=== PATIENT | female | born 1945 | race Two or more races ===

== ENCOUNTER 2025-04-01 18:57 | Emergency (ER) | payer OTHER, MEDICARE ==
[~2025-04-01] VITALS: Ht 152.4 cm; Wt 120.0 kg
--- NOTE | 2025-04-01 19:09 | ED.PDOC ---
Altered Mental Status HPI Comments This is a 79 year old female BIBA and accompanied by daughter presenting to the ED with chief complaint of ALOC. Patient's daughter reports that the patient has been increasingly lethargic today and had a noted fever of 104F at home. Daughter relays that the patient had recently finished a Keflex course for treat ment of a UTI 2 weeks ago. Daughter states patient has been too weak to get up and has been slightly altered, being unable to recall her birthday when she normally does. Patient denies any N/V/D, abdominal pain, dysuria, hematuria, flank pain, or chills. 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 Hx Family History Family History: Reviewed,noncontributory to illness, Family hx of lung davion Family History (Other): Lupus Social History Smoker: Non-Smoker Alcohol: Denies ETOH Use Drugs: Denies Drug Use Lives In: Home Constitutional: reports: fever, weakness; denies: chills, diaphoresis, fatigue, malaise, sweats, others EENTM: denies: blurred vision, double vision, ear bleeding, ear discharge, ear drainage, ear pain, ear ringing, eye pain, eye redness, hearing loss, mouth pain, mouth swelling, nasal discharge, nose bleeding, nose congestion, nose pain, photophobia, tearing, throat pain, throat swelling, voice changes, others Respiratory: denies: cough, hemoptysis, orthopnea, SOB at rest, shortness of breath, SOB with excertion, stridor, wheezing, others Cardiovascular: denies: chest pain, dizzy spells, diaphoresis, Dyspnea on exertion, edema, irregular heart beat, left arm pain, lightheadedness, palpitations, PND, syncope, others Gastrointestinal: denies: abdomen distended, abdominal pain, blood streaked bowels, constipated, diarrhea, dysphagia, difficulty swallowing, hematemesis, melena, nausea, poor appetite, poor fluid intake, rectal bleeding, rectal pain, vomiting, others Genitourinary: denies: abnormal vagina bleeding, burning, dyspareunia, dysuria, flank pain, frequency, hematuria, incontinence, pain, , vagina disc harge, urgency, others Neurological: denies: dizziness, fainting, headache, left sided numbness, left sided weakness, numbness, paresthesia, pre-existing deficit, right sided numbness, right sided weakness, seizure, speech problems, tingling, tremors, weakness, others Musculoskeletal: denies: back pain, gout, joint pain, joint swelling, muscle pain, muscle stiffness, neck pain, others Integumetry: denies: bruises, change in color, change in hair/nails, dryness, laceration, lesions, lumps, rash, wounds, others Allergic/Immunocompromised: denies: Difficulty Healing, Frequent Infections, Hives, Itching, others Hematologic/Lymphatic: denies: anemia, blood clots, easy bleeding, easy bruising, swollen glands, others Endocrine: denies: excessive hunger, excessive sweating, excessive thirst, excessive urination, flushing, intolerance to cold, intolerance to heat, unexplained weight gain, unexplained weight loss, others Psychiatric: denies: anxiety, bipolar disorder, depression, hopeless, panic disorder, schizophrenia, sleepless, suicidal, others Unable to Obtain due to: Altered Mental Status All Other Systems: Reviewed and Negative Physical Exam General Appearance: Moderate Distress, Obese HEENT: Normal ENT Inspection, Pharynx Normal, TMs Normal Neck: Full Range of Motion, Non-Tender, Normal, Normal Inspection Respiratory: Chest Non-Tender, Lungs Clear, No Accessory Muscle Use, Respiratory Distress Cardiovascular: No Edema, No JVD, No Murmur, No Gallop, Normal Peripheral Pulses, Regular Rate/Rhythm Breast Exam: Deferred Gastrointestinal: No Organomegaly, Non Tender, No Pulsatile Mass, Normal Bowel Sounds, Soft Genitalia: Deferred Pelvic: Deferred Rectal: Deferred Extremities: No calf tenderness, Normal capillary refill, No pedal edema Musculoskeletal : Apperance: Normal Neurologic: knowledge engineer II-XII nml as Tested, Motor Weakness, Normal Affect, Normal Mood, No Sensory Deficits Cerebellar Function: Normal Reflexes: Normal Skin: Dry, Normal Color, Warm Lymphatic: No Adenopathy Was a procedure done? Was a procedure done?: No Differential Diagnosis (ALOC) Differential Diagnosis: Hypoglycemia, Sepsis, Hypoxemia, Seizure X-Ray, Labs, Meds, VS Vital Signs Date Time Temp Pulse Resp B/P (MAP) Pulse Ox O2 Delivery O2 Flow Rate FiO2 04/01/25 20:56 99.2 04/01/25 20:48 92 Room Air* 0 21 04/01/25 20:32 99.2 97 25 111/62 (78) 97 99.2 04/01/25 20:03 101.7 04/01/25 19:30 101.7 109 22 141/79 (99) 92 101.7 04/01/25 19:05 106 04/01/25 19:00 102.6 114 20 128/71 95 102.6 Lab Test 04/01/25 20:18 04/01/25 19:25 Range/Units Troponin I High Sensitivity Pending 11 </=34 ng/L White Blood Count 10.3 4.4-10.8 10^3/uL Red Blood Count 4.34 4.0-5.20 10^6/uL Hemoglobin 12.6 12.2-16.2 g/dL Hematocrit 38.0 36.0-46.0 % Mean Corpuscular Volume 87.7 80.0-100.0 fL Mean Corpuscular Hemoglobin 29.1 28.0-32.0 pg Mean Corpuscular Hemoglobin Concent 33.2 32.0-36.0 g/dL Red Cell Distribution Width 13.8 11.8-14.3 % Platelet Count 293 140-450 10^3/uL Mean Platelet Volume 7.2 6.9-10.8 fL Neutrophils (%) (Auto) 79.7 37.0-80.0 % Lymphocytes (%) (Auto) 7.4 L 10.0-50.0 % Monocytes (%) (Auto) 12.0 0.0-12.0 % Eosinophils (%) (Auto) 0.6 0.0-7.0 % Basophils (%) (Auto) 0.3 0.0-2.0 % Neutrophils # (Auto) 8.2 1.6-8.6 10 ^3/uL Lymphocytes # (Auto) 0.8 0.4-5.4 10 ^3/uL Monocytes # (Auto) 1.2 0-1.3 10 ^3/uL Eosinophils # (Auto) 0.1 0-0.8 10 ^3/uL Basophils # (Auto) 0 0-0.2 10 ^3/uL Nucleated Red Blood Cells 0.0 % Sodium Level 134 L 136-145 mmol/L Potassium Level 4.1 3.5-5.1 mmol/L Chloride Level 99 98-107 mmol/L Carbon Dioxide Level 27 20-31 mmol/L Anion Gap 8 5-15 Blood Urea Nitrogen 11 9-23 mg/dL Creatinine 1.19 H 0.550-1.02 mg/dL Glomerular Filtration Rate Calc 47 >90 mL/min BUN/Creatinine Ratio 9.2 L 10.0-20.0 Serum Glucose 118 H 74-106 mg/dL Lactic Acid Level 1.0 0.4-2.0 mmol/L Calcium Level 8.4 L 8.7-10.4 mg/dL Current Medications Medications (Trade) Dose Ordered Sig/Asad Route Start Time Stop Time Status Last Admin Sodium Chloride 1,000 ml @ 150 mls/hr Q6H40M ONCE IV 04/01/25 19:15 04/02/25 01:54 04/01/25 19:29 Vancomycin HCl 250 ml @ 250 mls/hr ONCE ONCE IV 04/01/25 19:15 04/01/25 20:14 DC 04/01/25 20:19 Ceftriaxone Sodium 50 ml @ 100 mls/hr ONCE ONCE IV 04/01/25 19:15 04/01/25 19:44 DC 04/01/25 19:30 Ibuprofen (Motrin Tablet) 400 mg ONCE ONCE PO 04/01/25 19:45 04/01/25 19:48 DC 04/01/25 20:03 IV Hep-Lock was established. The patient was given normal saline as a bolus sepsis protocol The patient was given vancomycin and Rocephin after blood cultures were drawn The patient was given ibuprofen 400 mg p.o. for the headache The chemistry panel and the CBC are within normal limits. The white blood cell count is also within normal limits At this time the chest x-ray shows possible infiltrates but no sign of any pneumothorax or other abnormalities At this time, the patient will be admitted The patient's family is now stating that the patient may leave. The urine test is pending The patient is being admitted per recommendation Images Reviewed?: Images reviewed and evaluated by me Time of 1ST Reevaluation: 21:01 Reevaluation 1ST: Unchanged Patient Education/Counseling: Diagnosis, Treatment, Prognosis Family Education/Counseling: No Family Present SEPSIS Sepsis Screen Physician Orders Urinalysis (04/01/25 19:02) Chest Portable (04/01/25 19:02) Market Analyst (04/01/25 19:02) Pulse Oximetry (04/01/25 19:02) Blood Pressure (04/01/25 19:02) Heplock Iv (04/01/25 19:02) Blood Culture (04/01/25 19:02) Electrocardigram (04/01/25 19:02) Sodium Chloride 0.9% (04/01/25 19:15) Troponin-I Hs (04/01/25 20:02) Troponin-I Hs (04/01/25 22:02) Electrocardigram (04/01/25 20:02) Electrocardigram (04/01/25 22:02) Vancomycin Per Pharmacy (04/01/25 20:45) Ceftriaxone 1gm/50ml (Rocephin) (04/02/25 20:00) Allergies (04/01/25 20:34) Code Status (04/01/25:34) Sodium Chloride 0.9% (04/01/25 20:45) Oxygen Per Hour (04/01/25 20:34) Hydrocodone-Acet 5/325mg Tab (Howell 5/32 (04/01/25 20:45) Ondansetron Hcl (Zofran) (04/01/25 20:45) Docusate Sodium Capsule (Colace Capsule) (04/01/25 20:45) Fall Risk Precautions In Place QSHIFT (04/01/25 20:34) Complete Blood Count (04/02/25 04:00) Comprehensive Metabolic Panel (04/02/25 04:00) Cardiac Diet-2gna,Lofat,Lochol (04/02/25 Breakfast) Condition: Serious (04/01/25 20:34) Acetaminophen Tablet (Tylenol Tablet) (04/01/25 20:45) Maintain Bed Rest (04/01/25 20:34) Sequential Compression Device (04/01/25 ) Albuterol Medneb (Ventolin Medneb) (04/01/25 20:45) Ipratropium Medneb (Atrovent Medneb) (04/01/25 20:45) Vancomycin 1gm/250ml Kit (04/01/25 21:30) Vital Signs Date Time Temp Pulse Resp B/P (MAP) Pulse Ox O2 Delivery O2 Flow Rate FiO2 04/01/25 20:56 99.2 04/01/25 20:48 92 Room Air* 0 21 04/01/25 20:32 99.2 97 25 111/62 (78) 97 99.2 04/01/25 20:03 101.7 04/01/25 19:30 101.7 109 22 141/79 (99) 92 101.7 04/01/25 19:05 106 04/01/25 19:00 102.6 114 20 128/71 95 102.6 Laboratory Tests Test 04/01/25 19:25 Lactic Acid Level 1.0 mmol/L (0.4-2.0) White Blood Count 10.3 10^3/uL (4.4-10.8) Medications Medications Dose Ordered Sig/Asad Route Start Time Stop Time Status Last Admin Dose Admin Ceftriaxone Sodium 50 ml @ 100 mls/hr ONCE ONCE IV 04/01/25 19:15 04/01/25 19:44 DC 04/01/25 19:30 Ibuprofen 400 mg ONCE ONCE PO 04/01/25 19:45 04/01/25 19:48 DC 04/01/25 20:03 Sodium Chloride 1,000 ml @ 150 mls/hr Q6H40M ONCE IV 04/01/25 19:15 04/02/25 01:54 04/01/25 19:29 Vancomycin HCl 250 ml @ 250 mls/hr ONCE ONCE IV 04/01/25 19:15 04/01/25 20:14 DC 04/01/25 20:19 Departure 1 Departure Time of Disposition: 20:58 Impression: Primary Impression: Autonomic dysfunction Additional Impression: Sepsis Qualified Codes: A41.9 - Sepsis, unspecified organism Disposition: ADMITTED INPATIENT Admit to: [facility] Condition: Fair Critical Care Note Critical Care Time?: Yes (45 min-critical care time only) Stability Stability form required: Yes Unstable for transfer: Telemetry monitoring (Telemetry monitoring required), ED Physician Assesment (Clinical assesment) Heart Score Heart Score: Heart Score Response (Comments) Value History N/A 0 EKG N/A 0 Age N/A 0 Risk Factors N/A 0 Troponin N/A 0 Total 0 I personally scribed for NATE PAUL MD ([email or web address]) on 04/01/25 at 19:09. Electronically submitted by Deon Dhillon ([email or web address]). NATE PAUL MD Apr 01, 2025 19:09
[2025-04-01] MEDS ORDERED: ACETAMINOPHEN 325 MG TAB PO ONE (19:15)
[2025-04-01] MEDS: SODIUM CHLORIDE 0.9% 1,000 ML IV ONE (19:29)
[2025-04-01 19:54] LABS: Chloride 99 mmol/L (98-107); Potassium 4.1 mmol/L (3.5-5.1)
[2025-04-01 19:55] LABS: Anion Gap 8 (5-15); Carbon Dioxide 27 mmol/L (20-31)
[2025-04-01 20:00] LABS: BUN/Creatinine Ratio 9.2 (10.0-20.0); Blood Urea Nitrogen 11 mg/dL (9-23); Hematocrit 38.0 % (36.0-46.0); Hemoglobin 12.6 g/dL (12.2-16.2); Mean Corpuscular Hemoglobin 29.1 pg (28.0-32.0); Mean Corpuscular Volume 87.7 fL (80.0-100.0); Nucleated Red Blood Cells % 0.0 %
[2025-04-01] MEDS: IBUPROFEN 400 MG TAB PO ONE (20:03)
[2025-04-01 20:07] LABS: Calcium 8.4 mg/dL (8.7-10.4); Glucose 118 mg/dL (74-106); Sodium 134 mmol/L (136-145)
[2025-04-01] MEDS: VANCOMYCIN 1GM/250ML KIT 250 ML IV ONE (20:19)
[2025-04-01] MEDS ORDERED: DOCUSATE SOD 100 MG CAP PO PRN (20:45)
[2025-04-01] MEDS ORDERED: HYDROcodone-ACET 5/325MG TAB PO PRN (20:45)
[2025-04-01] MEDS ORDERED: VANCOMYCIN PER PHARMACY 0 MG IV SCH (20:45)
[2025-04-01] MEDS: SODIUM CHLORIDE 0.9% 1,000 ML IV SCH (20:45)
[2025-04-01] MEDS ORDERED: ONDANSETRON HCL 4 MG/2 ML VIAL IV PRN (20:45)
[2025-04-01] MEDS ORDERED: IPRATROPIUM BROM 0.5 MG/2.5ML INH SOL NEB PRN (20:45)
[2025-04-01] MEDS ORDERED: ALBUTEROL SULF 2.5 MG/0.5ML(0.5%) NEB SOLN NEB PRN (20:45)
[2025-04-01] MEDS ORDERED: ACETAMINOPHEN 325 MG TAB PO PRN (20:45)
[2025-04-01 20:48] VITALS: O2SAT 92
--- NOTE | 2025-04-01 20:58 | DVH ---
CHEST RADIOGRAPH REASON FOR EXAM: Altered level of consciousness. COMPARISON: None TECHNIQUE: One view of the chest is provided FINDINGS: The cardiomediastinal silhouette is within normal limits for size. There are low inspirato ry volumes causing crowding and exaggeration of the pulmonary markings. The left costophrenic sulcus is excluded from view. There is left basilar airspace disease, possibly atelectasis. There is no lar ge pleural effusion. There is no pneumothorax. No acute osseous abnormality is identified. IMPRESSION: Low inspiratory volumes causing crowding and exaggeration of the pulmonary markings. Left basilar air space disease, possibly atelectasis given the low inspiratory volumes.
[2025-04-01 20:59] VITALS: O2SAT 97
[2025-04-01] MEDS: VANCOMYCIN 1GM/250ML KIT IV ONE (21:33)
[2025-04-01 21:43] LABS: Urine Protein, UAD TRACE (Negative)
[2025-04-01] MEDS ORDERED: AZIT500T66 PO (22:14)
[2025-04-01] MEDS ORDERED: CEFD300C2 PO (22:14)
[2025-04-01 22:15] VITALS: BP 111/62; PULSE 97; RESP 22; TEMP 99.2; O2SAT 97
--- NOTE | 2025-04-02 11:53 | ECG ---
[facility] Test Date: 2025-04-01 Test Time: 19:05:51 Pat Name: FEDERICO ALLAN Department: [facility] ED Patient ID: [facility]-[id number] Room: Gender: F Credit Risk Analytics Manager: sofia : 1945 Requested By: NATE PAUL Order Number: [id number] Reading MD: Glenroy Cox Measurements Intervals Allen Rate: 106 P: 61 MO: 198 QRS: -72 QRSD: 97 T: 61 QT: 327 QTc: 435 Interpretive Statements Sinus tachycardia Abnormal R-wave progression, late transition Inferior infarct, old Electronically Signed On 04-03-2025 13:37:25 PST by Glenroy Cox Please click the below link to view image of tracing.
== END 2025-04-01 22:40 | disposition left against medical advice (07) ==
LOC: EDBD 18:57 → ER 19:00
DX: A41.9 Sepsis, unspecified organism (principal); G90.9 Disorder of the autonomic nervous system, unspecified; J45.909 Unspecified asthma, uncomplicated; I10 Essential (primary) hypertension; M19.90 Unspecified osteoarthritis, unspecified site; Z88.0 Allergy status to penicillin; Z87.440 Personal history of urinary (tract) infections
CPT/HCPCS: 36415; 71045; 80048; 81001; 82947; 83605; 84484; 85025; 87040; 93005; 96361; 96365; 96367; 99291; J0696; J3373; J7030; 82962